=== PATIENT | male | born 1950 | race Caucasian/White ===

== ENCOUNTER 2018-02-01 05:15 | Emergency (ER) | payer OTHER ==
[~2018-02-01] VITALS: Ht 188 cm; Wt 112.0 kg
[2018-02-01] MEDS ORDERED: PRINIVIL20 MG (05:26)
[2018-02-01] MEDS ORDERED: FLOMAX0.4 MG (05:27)
[2018-02-01] MEDS ORDERED: ZOCOR20 MG (05:27)
[2018-02-01 05:46] LABS: URINE BILIRUBIN NEGATIVE (Negative); URINE BLOOD 1+ (Negative); URINE CLARITY CLEAR; URINE COLOR YELLOW; URINE GLUCOSE-RANDOM NEGATIVE (Negative); URINE KETONES NEGATIVE (Negative); URINE LEUKOCYTES-REFLEX NEGATIVE (Negative); URINE NITRITE-REFLEX NEGATIVE (Negative); URINE PROTEIN NEGATIVE (Negative); URINE SPECIFIC GRAVITY <= 1.005 (1.005-1.030); URINE UROBILINOGEN 0.2 E.U./dl (0.2-1.0)
[2018-02-01 05:55] LABS: BACTERIA-REFLEX 1-9 Few /HPF (None Seen); CASTS None Seen /LPF (None Seen); CRYSTALS None Seen /LPF (None Seen); MUCUS 0-3 Light strn/LPF (None Seen); SQUAMOUS 0-3 Few /LPF (0-3); URINE RBC 3-10 Few /HPF (0-2); URINE WBC-REFLEX 0-5 Rare /HPF (0-5)
[2018-02-01 06:39] VITALS: BP 125/78
== END 2018-02-01 06:39 | disposition home or self-care (01) ==
LOC: M.ERS 05:15
PROVIDERS: Emergency Medicine
DX: R33.9 Retention of urine, unspecified (principal); R35.0 Frequency of micturition; I10 Essential (primary) hypertension

== ENCOUNTER 2019-05-12 23:31 | Emergency (ER) | payer OTHER ==
[~2019-05-12] VITALS: Ht 188 cm; Wt 103.9 kg
[~2019-05-12 23:31] MED LIST: FLOMAX0.4 MG; PRINIVIL20 MG; ZOCOR20 MG
[2019-05-12 23:54] LABS: URINE BILIRUBIN NEGATIVE (Negative); URINE BLOOD TRACE (Negative); URINE CLARITY CLEAR; URINE COLOR YELLOW; URINE GLUCOSE-RANDOM NEGATIVE (Negative); URINE KETONES NEGATIVE (Negative); URINE LEUKOCYTES-REFLEX NEGATIVE (Negative); URINE NITRITE-REFLEX NEGATIVE (Negative); URINE PROTEIN NEGATIVE (Negative); URINE UROBILINOGEN 0.2 E.U./dl (0.2-1.0)
[2019-05-12] MEDS ORDERED: SIMVASTATIN80 MG PO (23:55)
[2019-05-12] MEDS ORDERED: RYTHMOL SR225 MG PO (23:55)
[2019-05-13 00:22] LABS: ABSOLUTE EOSINOPHILS 0.2 thou/uL (0.0-0.7); ABSOLUTE LYMPHOCYTES 1.6 thou/uL (0.8-5.3); ABSOLUTE MONOCYTES 0.8 thou/uL (0.0-1.2); BASOPHILS 0.9 %; EOSINOPHILS 3.1 %; HEMATOCRIT 40.4 % (42.0-52.0); HEMOGLOBIN 14.6 gm/dL (14.0-18.0); LYMPHOCYTES 28.3 %; MCH 33.8 pg (26.0-34.0); MCV 93.9 fL (80.0-100.0); MONOCYTES 13.6 %; MPV 8.2 fl. (7.2-11.1); NUCLEATED RBCS 0 /100WBC; PLATELET COUNT* 233 thou/uL (150-400); POLYS 54.1 %; RBC 4.31 mil/uL (4.50-6.00); RDW-CV 12.9 % (10.5-14.5); WBC 5.6 thou/uL (4.0-11.0)
[2019-05-13 00:30] LABS: INR 1.1; PROTIME 11.2 Seconds (9.20-11.50)
[2019-05-13] MEDS ORDERED: ELIQUIS5 MG PO (00:32)
[2019-05-13 01:10] LABS: ALBUMIN 3.6 g/dL (3.4-5.0); CALCIUM 8.7 mg/dL (8.5-10.1); CREATININE 1.2 mg/dL (0.6-1.3); POTASSIUM 3.8 mmol/L (3.5-5.1); TOTAL BILIRUBIN 0.4 mg/dL (<0.1-1.0); TOTAL PROTEIN 6.5 g/dL (6.4-8.2)
[2019-05-13 01:43] VITALS: BP 143/81
--- NOTE | 2019-05-14 12:27 | EKG ---
[place] [address] ELECTROCARDIOGRAM REPORT Name: SHAUNADARRYL [facility] Guillermo#: [id number] Admission: 05/12/19 Attend Phys: Discharge: 05/13/19 Date of : 50 Report #: [id number] THIS REPORT FOR: //name// [facility] ED Test Date: 2019-05-12 Test Time: 23:56:33 Pat Name: DARRYL VILLATORO Department: Room: Gender: Electrical Panel Builder: [place] : 1950 Requested By: Elida Cardenas Order Number: [id number] Reading MD: Jonathon Carranza Measurements Intervals [place] Rate: 58 P: 74 DC: 175 QRS: 46 QRSD: 107 T: 52 QT: 427 QTc: 420 Interpretive Statements Sinus rhythm Probable left atrial enlargement Consider right ventricular hypertrophy No previous ECG available for comparison Electronically Signed On 05-14-2019 12:25:58 BUSINESS CONTINUITY STRATEGY DIRECTOR by Jonathon Carranza [email or web address] <ELECTRONICALLY SIGNED> By: Jonathon Carranza MD, [facility] 05/14/19 1225 [id number] [id number] Jonathon Carranza MD, FACC /EPI
== END 2019-05-13 01:43 | disposition home or self-care (01) ==
LOC: M.ERS 23:31
PROVIDERS: Emergency Medicine
DX: I10 Essential (primary) hypertension (principal)

== ENCOUNTER 2019-08-25 04:55 | Emergency (ER) | payer OTHER ==
[~2019-08-25] VITALS: Ht 188 cm; Wt 99.8 kg
[~2019-08-25 04:55] MED LIST changes: +ELIQUIS5 MG PO; +RYTHMOL SR225 MG PO; +SIMVASTATIN80 MG PO
[2019-08-25] MEDS ORDERED: [UNRECOGNIZED DRUG - OTHER] (05:05)
[2019-08-25] MEDS ORDERED: VITAMIN D3250 MC1 PO (05:06)
[2019-08-25] MEDS ORDERED: SENNA PLUS TAB1 EACH PO (05:06)
[2019-08-25] MEDS ORDERED: MUCINEX600 MG PO (05:07)
[2019-08-25 05:20] LABS: ABSOLUTE EOSINOPHILS 0.1 thou/uL (0.0-0.7); ABSOLUTE LYMPHOCYTES 1.4 thou/uL (0.8-5.3); ABSOLUTE MONOCYTES 0.7 thou/uL (0.0-1.2); ABSOLUTE NEUTROPHILS 3.7 thou/uL (1.6-8.1); BASOPHILS 0.8 %; EOSINOPHILS 0.9 %; HEMATOCRIT 45.4 % (42.0-52.0); LYMPHOCYTES 23.4 %; MCH 33.8 pg (26.0-34.0); MCHC 35.1 g/dL (28.0-37.0); MCV 96.3 fL (80.0-100.0); MONOCYTES 12.5 %; NUCLEATED RBCS 0 /100WBC; PLATELET COUNT* 243 thou/uL (150-400); POLYS 62.4 %; RBC 4.71 mil/uL (4.50-6.00); RDW-CV 13.5 % (10.5-14.5); WBC 5.9 thou/uL (4.0-11.0)
[2019-08-25 05:32] LABS: URINE BILIRUBIN NEGATIVE (Negative); URINE BLOOD 3+ (Negative); URINE CLARITY CLOUDY; URINE COLOR YELLOW; URINE GLUCOSE-RANDOM NEGATIVE (Negative); URINE KETONES NEGATIVE (Negative); URINE LEUKOCYTES-REFLEX NEGATIVE (Negative); URINE NITRITE-REFLEX NEGATIVE (Negative); URINE PROTEIN NEGATIVE (Negative); URINE SPECIFIC GRAVITY 1.015 (1.005-1.030); URINE UROBILINOGEN 0.2 E.U./dl (0.2-1.0)
[2019-08-25 05:33] LABS: CALCIUM 8.9 mg/dL (8.5-10.1)
[2019-08-25 05:39] LABS: CRYSTALS None Seen /LPF (None Seen); SQUAMOUS NONE SEEN /LPF (0-3); URINE RBC >20 Many /HPF (0-2)
[2019-08-25 05:41] LABS: BACTERIA-REFLEX None Seen /HPF (None Seen); CASTS None Seen /LPF (None Seen); URINE WBC-REFLEX 0-5 Rare /HPF (0-5)
[2019-08-25 06:29] VITALS: BP 119/62
== END 2019-08-25 06:30 | disposition home or self-care (01) ==
LOC: M.ERS 04:55
PROVIDERS: Emergency Medicine
DX: R33.9 Retention of urine, unspecified (principal); I10 Essential (primary) hypertension

== ENCOUNTER 2019-11-21 05:52 | Emergency (ER) | payer OTHER ==
[~2019-11-21] VITALS: Ht 182.9 cm; Wt 99.8 kg
[~2019-11-21 05:52] MED LIST changes: +MUCINEX600 MG PO; +SENNA PLUS TAB1 EACH PO; +VITAMIN D3250 MC1 PO; +[UNRECOGNIZED DRUG - OTHER]
[2019-11-21 06:12] LABS: URINE BILIRUBIN NEGATIVE (Negative); URINE BLOOD NEGATIVE (Negative); URINE CLARITY CLEAR; URINE COLOR YELLOW; URINE GLUCOSE-RANDOM NEGATIVE (Negative); URINE KETONES NEGATIVE (Negative); URINE LEUKOCYTES-REFLEX NEGATIVE (Negative); URINE NITRITE-REFLEX NEGATIVE (Negative); URINE PROTEIN NEGATIVE (Negative); URINE SPECIFIC GRAVITY 1.015 (1.005-1.030); URINE UROBILINOGEN 0.2 E.U./dl (0.2-1.0)
[2019-11-21 06:27] LABS: CALCIUM 8.5 mg/dL (8.5-10.1); CREATININE 1.1 mg/dL (0.6-1.3); POTASSIUM 3.9 mmol/L (3.5-5.1)
[2019-11-21 06:55] VITALS: BP 113/66
== END 2019-11-21 06:55 | disposition home or self-care (01) ==
LOC: M.ERS 05:52
PROVIDERS: Emergency Medicine Emergency Medical Services
DX: R33.9 Retention of urine, unspecified (principal); I10 Essential (primary) hypertension

== ENCOUNTER → 2020-04-02 | Outpatient (CLI) | payer OTHER ==
[~2020-04-02] MED LIST changes: +AVODART0.5 MG PO; +FLECAINIDE ACET50 M2 PO; +FLOMAX0.4 MG PO; +LIPITOR40 MG PO; +SENOKOT8.6 MG PO; +VIAGRA100 MG PO
[2020-04-02 11:46] VITALS: BP 112/80
[2020-04-02 14:49] VITALS: BP 114/67
--- NOTE | 2020-04-04 13:42 | CARD ---
[address] [address] CARDIAC CATH REPORT Name: DARRYL VILLATORO Room: [facility] SergeKadenUday.#: [id number] Admission: 04/02/20 Attend Phys: Ramon Patel MD, Discharge: Date of : 50 Report #: [id number] THIS REPORT FOR: cc: VISHNU GONZALEZ MD, HEATHER L. MD ~ Ramon Patel MD [facility] DATE OF SERVICE: 04/02/2020 PROCEDURE: Direct current cardioversion. TECHNIQUE: The patient was noted to be in atrial flutter with a mildly tachycardic ventricular response. He had been anticoagulated with Eliquis chronically. The patient was sedated with 5 mg of Versed and 100 mcg of fentanyl given in gradual increments. Blood pressure was stable and oxygen saturation was stable. With the patches applied in the AP location, we delivered a shock of 200 watt seconds or 200 joules x 1 with the patient reverting from atrial flutter to sinus rhythm and a normal rate. He remained in sinus rhythm with gradual return to a normal level of consciousness. He received an additional dose of flecainide 75 mg post-procedurally and I recommended augmentation of his chronic therapy to flecainide 75 mg b.i.d. with continued Eliquis 5 mg b.i.d. He did well post-procedurally and was discharged to home at approximately 1600 hours in stable condition. IMPRESSION: Successful direct current cardioversion with rhythm reverting from atrial flutter with a tachycardic response to sinus rhythm at a normal rate. <ELECTRONICALLY SIGNED> By: Ramon Patel MD, FACC 04/04/20 1342 1040 [id number] Patel MD, FACC /nt
== END | disposition home or self-care (01) ==
LOC: M.CL 10:58
PROVIDERS: ATTEND Internal Medicine
DX: I48.92 Unspecified atrial flutter (principal); I48.91 Unspecified atrial fibrillation; I10 Essential (primary) hypertension; Z98.890 Other specified postprocedural states; Z79.899 Other long term (current) drug therapy; Z79.01 Long term (current) use of anticoagulants

== ENCOUNTER 2020-05-30 02:10 | Emergency (ER) | payer OTHER ==
[~2020-05-30] VITALS: Ht 188 cm; Wt 103.0 kg
[~2020-05-30 02:10] MED LIST changes: +3-DAY VAGINAL C21 GM VAG; +LIPITOR10 MG PO; +LISINOPRIL5 MG PO; +TAMBOCOR 100 M100 M1 PO
[2020-05-30 02:32] LABS: URINE BILIRUBIN NEGATIVE (Negative); URINE BLOOD 3+ (Negative); URINE CLARITY SL CLOUDY; URINE GLUCOSE-RANDOM NEGATIVE (Negative); URINE KETONES NEGATIVE (Negative); URINE LEUKOCYTES-REFLEX NEGATIVE (Negative); URINE NITRITE-REFLEX NEGATIVE (Negative); URINE PROTEIN NEGATIVE (Negative); URINE SPECIFIC GRAVITY 1.015 (1.005-1.030); URINE UROBILINOGEN 0.2 E.U./dl (0.2-1.0)
[2020-05-30 02:36] LABS: CASTS None Seen /LPF (None Seen); SQUAMOUS 0-3 Few /LPF (0-3); URINE COLOR YELLOW
[2020-05-30 02:37] LABS: BACTERIA-REFLEX None Seen /HPF (None Seen); CRYSTALS None Seen /LPF (None Seen); URINE RBC >20 Many /HPF (0-2); URINE WBC-REFLEX 0-5 Rare /HPF (0-5)
[2020-05-30 02:47] LABS: ABSOLUTE LYMPHOCYTES 1.8 thou/uL (0.8-5.3); ABSOLUTE NEUTROPHILS 6.5 thou/uL (1.6-8.1); BASOPHILS 0.4 %; EOSINOPHILS 0.4 %; HEMATOCRIT 42.1 % (42.0-52.0); HEMOGLOBIN 14.4 gm/dL (14.0-18.0); LYMPHOCYTES 18.7 %; MCH 32.6 pg (26.0-34.0); MCHC 34.3 g/dL (28.0-37.0); MCV 94.9 fL (80.0-100.0); MPV 7.7 fl. (7.2-11.1); NUCLEATED RBCS 0 /100WBC; PLATELET COUNT* 220 thou/uL (150-400); POLYS 69.5 %; RBC 4.43 mil/uL (4.50-6.00); WBC 9.4 thou/uL (4.0-11.0)
[2020-05-30 02:52] LABS: CALCIUM 8.9 mg/dL (8.5-10.1); CREATININE 0.9 mg/dL (0.6-1.3); POTASSIUM 3.7 mmol/L (3.5-5.1)
[2020-05-30 02:57] LABS: ALBUMIN 3.9 g/dL (3.4-5.0); TOTAL BILIRUBIN 0.5 mg/dL (<0.1-1.0); TOTAL PROTEIN 6.7 g/dL (6.4-8.2)
[2020-05-30 03:43] VITALS: BP 122/79
== END 2020-05-30 03:43 | disposition home or self-care (01) ==
LOC: M.ERS 02:10
PROVIDERS: Personal Emergency Response Attendant
DX: R33.9 Retention of urine, unspecified (principal); K59.00 Constipation, unspecified; I10 Essential (primary) hypertension; E78.5 Hyperlipidemia, unspecified; I48.92 Unspecified atrial flutter; Z98.890 Other specified postprocedural states; Z79.899 Other long term (current) drug therapy

== ENCOUNTER → 2021-03-31 | Outpatient (CLI) | payer OTHER ==
--- NOTE | 2021-04-17 00:39 | SLEEP ---
[address] [address] SLEEP STUDY REPORT Name: DARRYL VILLATORO Room: [facility]#: [id number] Admission: 03/31/21 Attend Phys: Serge Baez Discharge: Date of : 50 Report #: [id number] THIS REPORT FOR: cc: Rima Mejias,Nic Whalen MD ~ DATE OF STUDY: 03/31/2021 HOME SLEEP STUDY Total duration of the study is 541 minutes. During this time duration, we recorded multiple sleep-related respiratory events. These included 292 obstructive apneas, 6 central apneas, 59 mixed apneas and 31 hypopneas. Overall, apnea-hypopnea index is 43. BODY POSITION DATA: Indicates the patient is lying on the right side throughout the sleep study with severe nocturnal hypoxemia recorded. O2 saturation is less than 90% for 104 minutes and less than 85% for 19 minutes; it is below 80% for 5 minutes; O2 saturation in the 70s for 2.5 minutes. Mean heart rate is 53. Lowest recorded O2 saturation is 64%. IMPRESSION: Severe obstructive sleep apnea with an apnea-hypopnea index of 43 with severe nocturnal hypoxemia as described above. The patient is lying on the right side throughout the sleep study. RECOMMENDATIONS: Considering severe obstructive sleep apnea, I recommend proceeding to in-lab sleep study for positive airway pressure titration instead of the use of a CPAP auto-titrated device. This entire sleep study was reviewed by a board-certified sleep physician. <ELECTRONICALLY SIGNED> By: Nic Goodrich MD 04/17/21 0039 [id number] [id number] Goodrich MD /nt
== END ==
LOC: M.SLEEPLAB 09:54
PROVIDERS: ATTEND Internal Medicine Cardiovascular Disease
DX: G47.33 Obstructive sleep apnea (adult) (pediatric) (principal); I48.0 Paroxysmal atrial fibrillation; R09.02 Hypoxemia